=== PATIENT | female | born 1950 | race Caucasian/White ===

== ENCOUNTER → 2016-12-23 | Outpatient (CLI) | payer MEDICARE, OTHER | END | disposition home or self-care (01) | LOC: LAB.O 08:19 | PROVIDERS: ATTEND Physician Assistant | DX: I77.9 Disorder of arteries and arterioles, unspecified (principal); R60.9 Edema, unspecified ==

== ENCOUNTER 2018-01-13 21:09 | Emergency (ER) | payer MEDICARE, OTHER ==
[2018-01-13] MEDS ORDERED: cloNIDine HCL 0.1 MG TAB PO ONE ×2 (21:32→22:30)
--- NOTE | 2018-01-13 21:35 | ED.PDOC ---
History of Present Illness - General Chief Complaint: Blood Pressure Problem Stated Complaint: elevated blood pressure Time Seen by Provider: 01/13/18 21:32 Source: patient Exam Limitations: no limitations - History of Present Illness Initial Comments: patient comes in today with several hour history of elevation of blood pressure greater than 200 systolic and greater than 100 diastolic. Patient her blood pressure has been very well controlled in the 120 systolic for greater than a year. Patient last saw her doctor a week ago but was started on medication for nerve pain. Patient states she is highly sensitive to medicine and is worried that may be causative. Patient has noticed this week for the first time with severe headache today. She does not normally suffer problems with this. Tonight she has headache that severe, bilateral, throbbing, superior without radiation. She has no chest pain but some nausea here and she denies vision change, shortness of breath, or difficulties with urination. Timing/Duration: 1-3 hours Severity: severe Improving Factors: rest Worsening Factors: nothing Associated Symptoms: nausea/vomiting Allergies/Adverse Reactions: Allergies Codeine Allergy (Verified 04/29/16 11:11) Lidocaine Allergy (Verified 04/29/16 11:11) Sulfa Drugs Allergy (Verified 10/17/13 06:47) Home Medications: Ambulatory Orders Amlodipine Besylate 10 mg PO DAILY 10/16/13 Metoprolol Tartrate 100 mg PO BID 10/16/13 Olmesartan Medoxomil-Hydrochlo [Benicar Hct 40-12.5 mg] 1 tab PO DAILY 10/16/13 Omeprazole 40 mg PO DAILY 10/16/13 Temazepam 30 mg PO HS 10/16/13 Aspirin [Aspirin Adult Low Dose] 81 mg PO DAILY 04/29/16 Celecoxib [CeleBREX] 200 mg PO BID 04/29/16 Coenzyme Q10 (Ubidecarenone) [Co Q-10] 100 mg PO DAILY 04/29/16 Furosemide 10 mg PO DAILY 04/29/16 Garlic [Odorless Garlic] 1,000 mg PO DAILY 04/29/16 Krill Oil [Krill Oil 1000 mg] 1 cap PO DAILY 04/29/16 Rosuvastatin Calcium [Crestor] 5 mg PO WKLY 04/29/16 Review of Systems - Review of Systems Constitutional: States: chills, diaphoresis, fever EENTM: States: no symptoms reported. Denies: blurred vision Respiratory: States: no symptoms reported. Denies: orthopnea, short of breath, wheezing Cardiology: Denies: chest pain, palpitations Gastrointestinal/Abdominal: States: nausea. Denies: abdominal pain, constipation, diarrhea, vomiting Genitourinary: States: no symptoms reported Neurological: States: headache. Denies: numbness, paresthesia, weakness Past Medical History (General) - Patient Medical History Hx Cardiac Disorders: No Hx Congestive Heart Failure: No Hx Diabetes: No Hx MRSA: No Family Medical History - Family History Mother Family History: Unknown Physical Exam - Physical Exam General Appearance: Alert, No apparent distress Eye Exam: bilateral normal Ears, Nose, Throat: hearing grossly normal, normal ENT inspection, normal pharynx Neck: non-tender, full range of motion, supple, normal inspection Respiratory: chest non-tender, lungs clear, normal breath sounds, no respiratory distress Cardiovascular/Chest: normal peripheral pulses, regular rate, rhythm, no edema, no gallop, no JVD, no murmur Peripheral Pulses: radial,right: 2+, radial,left: 2+, posterior tibialis,right: 2+, posterior tibialis,left: 2+ Gastrointestinal/Abdominal: normal bowel sounds, non tender, soft, no organomegaly, no pulsatile mass Extremity: normal range of motion, non-tender Neurologic: laboratory helper II-XII nml as tested, no motor/sensory deficits, alert, normal mood/affect DTR: 2+: Biceps, left, Biceps, right, Patellar, left, Patellar, right Skin Exam: normal color Progress - Progress Progress: 01/13/18 22:20 01/13/18 21:45 EKG STAT Laboratory Results WBC 5.5 K/mm3 (4.8-10.8) 01/13/18 21:32 RBC 3.83 M/mm3 (4.20-5.40) L 01/13/18 21:32 Hgb 12.6 gm/dL (12.0-16.0) 01/13/18 21:32 Hct 36.2 % (36.0-47.0) 01/13/18 21:32 MCV 94.6 fl (81.0-99.0) 01/13/18 21:32 MCH 32.8 pg (27.0-31.0) H 01/13/18 21:32 MCHC 34.9 g/dL (33.0-37.0) 01/13/18 21:32 RDW 13.5 % (11.5-14.5) 01/13/18 21:32 Plt Count 175 K/mm3 (130-400) 01/13/18 21:32 MPV 7.2 fl (7.40-10.4) L 01/13/18 21:32 Absolute Neuts (auto) 3.30 K/uL (1.8-6.8) 01/13/18 21:32 Absolute Lymphs (auto) 1.30 K/uL (1.0-3.4) 01/13/18 21:32 Absolute Monos (auto) 0.50 K/uL (0.2-0.8) 01/13/18 21:32 Absolute Eos (auto) 0.30 K/uL (0.0-0.4) 01/13/18 21:32 Absolute Basos (auto) 0.00 K/uL (0.0-0.1) 01/13/18 21:32 Neutrophils % 60.3 % (42.0-78.0) 01/13/18 21:32 Lymphocytes % 24.4 % (20.0-50.0) 01/13/18 21:32 Monocytes % 9.3 % (2.0-9.0) H 01/13/18 21:32 Eosinophils % 5.7 % (1.0-5.0) H 01/13/18 21:32 Basophils % 0.3 % (0.0-2.0) 01/13/18 21:32 Sodium 139 mmol/L (135-145) 01/13/18 21:32 Potassium 3.3 mmol/L (3.6-5.0) L 01/13/18 21:32 Chloride 103 mmol/L (101-111) 01/13/18 21:32 Carbon Dioxide 24 mmol/L (21-31) 01/13/18 21:32 Anion Gap 15.3 (12-18) 01/13/18 21:32 BUN 21 mg/dL (7-18) H 01/13/18 21:32 Creatinine 1.10 mg/dL (0.6-1.3) 01/13/18 21:32 BUN/Creatinine Ratio 19.1 (10-20) 01/13/18 21:32 Random Glucose 121 mg/dL (70-105) H 01/13/18 21:32 Serum Osmolality 281.8 mOsm/L (275-295) 01/13/18 21:32 Calcium 9.4 mg/dL (8.4-10.2) 01/13/18 21:32 Total Bilirubin 0.5 mg/dL (0.2-1.0) 01/13/18 21:32 AST 31 IU/L (10-42) 01/13/18 21:32 ALT 24 IU/L (10-60) 01/13/18 21:32 Alkaline Phosphatase 65 IU/L (42-121) 01/13/18 21:32 Troponin I < 0.02 ng/mL (0.01-0.05) 01/13/18 21:32 Serum Total Protein 6.9 gm/dL (6.4-8.2) 01/13/18 21:32 Albumin 3.7 g/dl (3.2-5.5) 01/13/18 21:32 Globulin 3.2 gm/dL (2.3-3.5) 01/13/18 21:32 Albumin/Globulin Ratio 1.2 (1.1-1.9) 01/13/18 21:32 01/13/18 23:08 patient is doing better and BP is 169/89. will have her take her Norvasc in the am and go home and try to rest tonight. follow up with PCP on Tuesday. Return to ER for return of SOTO, chest pain, shortness of breath, or BP >180/100. Stop new medication for leg pain at night as BP began increasing with this medication. - EKG/XRAY/CT EKG: Sinus, no ST T wave changes Comments: HR 68 with normal axis and 1st degree AV block Departure - Departure Clinical Impression: Hypertensive urgency Disposition: Discharge to Home or Self Care Condition: Good Departure Forms: ED Discharge - Pt. Copy, Patient Portal Self Enrollment Instructions: DI for High Blood Pressure Diet: low salt diet Referrals: Jean Lindsay MD [Primary Care Provider] - 1-2 Weeks Home Medications: Ambulatory Orders Amlodipine Besylate 10 mg PO DAILY 10/16/13 Metoprolol Tartrate 100 mg PO BID 10/16/13 Olmesartan Medoxomil-Hydrochlo [Benicar Hct 40-12.5 mg] 1 tab PO DAILY 10/16/13 Omeprazole 40 mg PO DAILY 10/16/13 Temazepam 30 mg PO HS 10/16/13 Aspirin [Aspirin Adult Low Dose] 81 mg PO DAILY 04/29/16 Celecoxib [CeleBREX] 200 mg PO BID 04/29/16 Coenzyme Q10 (Ubidecarenone) [Co Q-10] 100 mg PO DAILY 04/29/16 Furosemide 10 mg PO DAILY 04/29/16 Garlic [Odorless Garlic] 1,000 mg PO DAILY 04/29/16 Krill Oil [Krill Oil 1000 mg] 1 cap PO DAILY 04/29/16 Rosuvastatin Calcium [Crestor] 5 mg PO WKLY 04/29/16 Additional Instructions: follow up with PCP on Tuesday. Return to ER for return of SOTO, chest pain, shortness of breath, or BP >180/100. Stop new medication for leg pain at night as BP began increasing with this medication.
[2018-01-13 22:42] VITALS: TEMP 99.4; O2SAT 98
[2018-01-14 00:21] VITALS: BP 160/90
== END 2018-01-13 23:31 | disposition home or self-care (01) ==
LOC: ER 21:09
DX: I16.0 Hypertensive urgency (principal); R11.2 Nausea with vomiting, unspecified; I44.0 Atrioventricular block, first degree; Z79.899 Other long term (current) drug therapy; Z88.2 Allergy status to sulfonamides; Z88.5 Allergy status to narcotic agent

== ENCOUNTER 2018-01-19 01:48 | Emergency (ER) | payer MEDICARE, OTHER ==
[2018-01-19 02:31] VITALS: O2SAT 96
--- NOTE | 2018-01-19 02:42 | ED.PDOC ---
History of Present Illness - General Chief Complaint: Blood Pressure Problem Stated Complaint: elevated BP Time Seen by Provider: 01/19/18 02:39 Source: patient, Vital Signs reviewed Exam Limitations: no limitations Additional Information: 67 YEAR OLD PRESENTS WITH UNCONTROLLED BLOOD PRESSURE BUT HAS NO SYMPTOMS HAS NO HEADACHE NO FOCAL WEAKNESS NO CHEST PAIN OR SHORTNESS OF BREATH - History of Present Illness Timing/Duration: 4-6 hours Severity: mild Improving Factors: nothing Worsening Factors: nothing Associated Symptoms: denies symptoms Allergies/Adverse Reactions: Allergies Codeine Allergy (Verified 04/29/16 11:11) Lidocaine Allergy (Verified 04/29/16 11:11) Sulfa Drugs Allergy (Verified 10/17/13 06:47) Home Medications: Ambulatory Orders Amlodipine Besylate 10 mg PO DAILY 10/16/13 Metoprolol Tartrate 100 mg PO BID 10/16/13 Olmesartan Medoxomil-Hydrochlo [Benicar Hct 40-12.5 mg] 1 tab PO DAILY 10/16/13 Omeprazole 40 mg PO DAILY 10/16/13 Temazepam 30 mg PO HS 10/16/13 Aspirin [Aspirin Adult Low Dose] 81 mg PO DAILY 04/29/16 Celecoxib [CeleBREX] 200 mg PO BID 04/29/16 Coenzyme Q10 (Ubidecarenone) [Co Q-10] 100 mg PO DAILY 04/29/16 Furosemide 10 mg PO DAILY 04/29/16 Garlic [Odorless Garlic] 1,000 mg PO DAILY 04/29/16 Krill Oil [Krill Oil 1000 mg] 1 cap PO DAILY 04/29/16 Rosuvastatin Calcium [Crestor] 5 mg PO WKLY 04/29/16 Clonidine HCl 0.2 mg PO BID #60 tab 01/19/18 Review of Systems - Review of Systems Constitutional: States: no symptoms reported EENTM: States: no symptoms reported Respiratory: States: no symptoms reported Cardiology: States: no symptoms reported Gastrointestinal/Abdominal: States: no symptoms reported Genitourinary: States: no symptoms reported Musculoskeletal: States: no symptoms reported Skin: States: no symptoms reported Neurological: States: no symptoms reported Endocrine: States: no symptoms reported Hematologic/Lymphatic: States: no symptoms reported Past Medical History (General) - Patient Medical History Hx Cardiac Disorders: No Hx Congestive Heart Failure: No Hx Hypertension: Yes Hx Diabetes: No Hx MRSA: No Surgical History: cholecystectomy, other - Vaccination History Hx Tetanus, Diphtheria Vaccination: No Hx Influenza Vaccination: Yes Hx Pneumococcal Vaccination: Yes - Social History Hx Tobacco Use: No Hx Alcohol Use: No Family Medical History - Family History Mother Family History: Unknown Physical Exam - Physical Exam General Appearance: Alert, Comfortable Eye Exam: bilateral normal Ears, Nose, Throat: hearing grossly normal, normal ENT inspection, normal pharynx Neck: non-tender, full range of motion, supple Respiratory: chest non-tender, lungs clear, normal breath sounds, no respiratory distress Cardiovascular/Chest: normal peripheral pulses, regular rate, rhythm, no edema, no gallop, no JVD Peripheral Pulses: radial,right: 2+ Gastrointestinal/Abdominal: normal bowel sounds, non tender, soft, no organomegaly Back Exam: normal inspection, no CVA tenderness, no vertebral tenderness Extremity: normal range of motion, non-tender Neurologic: procurement professional logistics II-XII nml as tested, no motor/sensory deficits, alert, normal mood/affect Departure - Departure Clinical Impression: Hypertension Time of Disposition: 02:43 Disposition: Discharge to Home or Self Care Condition: Good Departure Forms: ED Discharge - Pt. Copy, Patient Portal Self Enrollment Instructions: DI for High Blood Pressure Referrals: Jean Lindsay MD [Primary Care Provider] - 1-2 Weeks Prescriptions: Clonidine HCl 0.2 mg PO BID #60 tab Home Medications: Ambulatory Orders Amlodipine Besylate 10 mg PO DAILY 10/16/13 Metoprolol Tartrate 100 mg PO BID 10/16/13 Olmesartan Medoxomil-Hydrochlo [Benicar Hct 40-12.5 mg] 1 tab PO DAILY 10/16/13 Omeprazole 40 mg PO DAILY 10/16/13 Temazepam 30 mg PO HS 10/16/13 Aspirin [Aspirin Adult Low Dose] 81 mg PO DAILY 04/29/16 Celecoxib [CeleBREX] 200 mg PO BID 04/29/16 Coenzyme Q10 (Ubidecarenone) [Co Q-10] 100 mg PO DAILY 04/29/16 Furosemide 10 mg PO DAILY 04/29/16 Garlic [Odorless Garlic] 1,000 mg PO DAILY 04/29/16 Krill Oil [Krill Oil 1000 mg] 1 cap PO DAILY 04/29/16 Rosuvastatin Calcium [Crestor] 5 mg PO WKLY 04/29/16 Clonidine HCl 0.2 mg PO BID #60 tab 07/26/18
[2018-01-19 03:06] VITALS: BP 126/76; TEMP 98.2
== END 2018-01-19 03:05 | disposition home or self-care (01) ==
LOC: ER 01:48
DX: I10 Essential (primary) hypertension (principal); Z79.899 Other long term (current) drug therapy; Z79.82 Long term (current) use of aspirin

== ENCOUNTER 2018-01-26 08:43 | Emergency (ER) | payer MEDICARE, OTHER ==
[2018-01-26 09:00] VITALS: TEMP 98.4
--- NOTE | 2018-01-26 09:33 | ED.PDOC ---
History of Present Illness - General Chief Complaint: Blood Pressure Problem Stated Complaint: elevated BP,shaky,weak Time Seen by Provider: 01/26/18 08:45 Source: patient, family Exam Limitations: no limitations - History of Present Illness Initial Comments: patient comes in today for elevated blood pressure and weakness. Patient has had a difficult time for the last 2-3 weeks with elevated blood pressure. After having blood pressure well controlled for several years patient was started on Neurontin for another issue. At that time her blood pressure started elevating to greater than 200 and she arrived to the emergency room on 13 of January. Patient at that time was given clonidine and her blood pressure was decreased. She followed up with her PCP and subsequently her housekeeping associate. Her blood pressure medication has since been adjusted but she continues to have bouts of elevation of blood pressure. The last adjustment was a week ago when she was changed to Benicar and labetalol in addition to her Norvasc. She felt very well until yesterday when she started having blood pressure spikes in the 190s systolic and over 100 diastolic. Additionally, last night she's been had a feeling of weakness and shaking. She's felt that way several times before when she was given lidocaine for anesthesia. Patient states that is the only other time this reaction has occurred. Patient is stuttering her words at times, feeling extremely weak in her legs, and having her hands and feet feel shaky. Patient has been dealing with chronic diarrhea for months with multiple loose stools. She's had gastroenterology work that up without definitive diagnosis at this time she is not undergoing treatment. Patient denies any fever, chills, cough or cold symptoms. She has no chest pain or shortness of breath currently but did have a bout of chest pain last night that was sharp and located under the left breast and radiated to her back. Patient did note that her heart rate had been in the 60s on the beta susan but fanny to 103 last night when she was feeling ill. Timing/Duration: 24 hours Severity: severe Improving Factors: nothing Worsening Factors: nothing Associated Symptoms: fever/chills, weakness Allergies/Adverse Reactions: Allergies Codeine Allergy (Verified 04/29/16 11:11) Gabapentin Allergy (Verified 01/26/18 09:00) Lidocaine Allergy (Verified 04/29/16 11:11) Sulfa Drugs Allergy (Verified 10/17/13 06:47) Home Medications: Ambulatory Orders Amlodipine Besylate 10 mg PO DAILY 10/16/13 Omeprazole 40 mg PO DAILY 10/16/13 Temazepam 30 mg PO HS 10/16/13 Aspirin [Aspirin Adult Low Dose] 81 mg PO DAILY 04/29/16 Celecoxib [CeleBREX] 200 mg PO BID 04/29/16 Furosemide 20 mg PO DAILY 04/29/16 Coenzyme Q10 (Ubidecarenone) [Coenzyme Q10] 100 mg PO DAILY 01/26/18 Garlic 1,000 mg PO DAILY 01/26/18 Krill Oil [Krill Oil 1000 mg] 1 cap PO DAILY 01/26/18 Labetalol HCl 100 mg PO BID 01/26/18 Olmesartan Medoxomil [Benicar] 20 mg PO BID 01/26/18 Review of Systems - Review of Systems Constitutional: States: chills, weakness, other EENTM: States: no symptoms reported. Denies: eye pain, blurred vision, ear pain , nose pain, throat pain Respiratory: States: no symptoms reported. Denies: cough, short of breath, wheezing Cardiology: States: see HPI. Denies: chest pain, edema, palpitations, syncope Gastrointestinal/Abdominal: States: diarrhea. Denies: abdominal pain, constipation, nausea, vomiting Genitourinary: States: no symptoms reported Musculoskeletal: States: no symptoms reported Skin: States: no symptoms reported Neurological: States: see HPI Past Medical History (General) - Patient Medical History Hx Stroke: No Hx Cardiac Disorders: No Hx Congestive Heart Failure: No Hx Hypertension: Yes Hx Diabetes: No Hx MRSA: No Surgical History: cholecystectomy - Vaccination History Hx Tetanus, Diphtheria Vaccination: No Hx Influenza Vaccination: Yes Hx Pneumococcal Vaccination: Yes - Social History Hx Tobacco Use: No Hx Alcohol Use: No Family Medical History - Family History Mother Family History: Unknown Progress - Progress Progress: 01/26/18 10:19 01/26/18 09:30 EKG STAT 01/26/18 10:18 Head [CT] Stat Laboratory Results WBC 3.9 K/mm3 (4.8-10.8) L 01/26/18 09:27 RBC 3.96 M/mm3 (4.20-5.40) L 01/26/18 09:27 Hgb 13.1 gm/dL (12.0-16.0) 01/26/18 09:27 Hct 38.5 % (36.0-47.0) 01/26/18: MCV 97.3 fl (81.0-99.0) 01/26/18: MCH 33.0 pg (27.0-31.0) H 01/26/18: MCHC 34.0 g/dL (33.0-37.0) 01/26/18: RDW 13.5 % (11.5-14.5) 01/26/18: Plt Count 182 K/mm3 (130-400) 01/26/18: MPV 7.5 fl (7.40-10.4) 01/26/18: Absolute Neuts (auto) 2.40 K/uL (1.8-6.8) 01/26/18: Absolute Lymphs (auto) 0.90 K/uL (1.0-3.4) L 01/26/18: Absolute Monos (auto) 0.40 K/uL (0.2-0.8) 01/26/18: Absolute Eos (auto) 0.20 K/uL (0.0-0.4) 01/26/18: Absolute Basos (auto) 0.00 K/uL (0.0-0.1) 01/26/18: Neutrophils % 61.3 % (42.0-78.0) 01/26/18: Lymphocytes % 23.4 % (20.0-50.0) 01/26/18: Monocytes % 9.0 % (2.0-9.0) 01/26/18: Eosinophils % 5.9 % (1.0-5.0) H 01/26/18: Basophils % 0.4 % (0.0-2.0) 01/26/18: Sodium 143 mmol/L (135-145) 01/26/18: Potassium 4.1 mmol/L (3.6-5.0) 01/26/18: Chloride 105 mmol/L (101-111) 01/26/18: Carbon Dioxide 27 mmol/L (21-31) 01/26/18: Anion Gap 15.1 (12-18) 01/26/18 09: BUN 20 mg/dL (7-18) H 01/26/18: Creatinine 1.29 mg/dL (0.6-1.3) 01/26/18 09: BUN/Creatinine Ratio 15.5 (10-20) 01/26/18 09: Random Glucose 118 mg/dL (70-105) H 01/26/18: Serum Osmolality 288.7 mOsm/L (275-295) 01/26/18: Calcium 9.8 mg/dL (8.4-10.2) 01/26/18: Total Bilirubin 0.7 mg/dL (0.2-1.0) 01/26/18: AST 37 IU/L (10-42) 01/26/18 ALT 31 IU/L (10-60) 01/26/18: Alkaline Phosphatase 68 IU/L (42-121) 01/26/18 Creatine Kinase 94 IU/L (26-140) 01/26/18: CK-MB (CK-2) 2.2 ng/mL (0.0-4.4) 01/26/18 CK-MB (CK-2) % Not Reportable 01/26/18 Troponin I < 0.02 ng/mL (0.01-0.05) 01/26/18: Serum Total Protein 7.5 gm/dL (6.4-8.2) 01/26/18: Albumin 4.1 g/dl (3.2-5.5) 01/26/18 Globulin 3.4 gm/dL (2.3-3.5) 01/26/18 Albumin/Globulin Ratio 1.2 (1.1-1.9) 01/26/18 Urine Color Yellow (Yellow) 01/26/18 Urine Appearance Clear (Clear) 01/26/18 Urine pH 6.0 (4.5-7.8) 01/26/18: Ur Specific [place] 1.015 (1.005-1.030) 01/26/18 Urine Protein Negative mg/dL 08/02/18 09:23 Urine Glucose (UA) Negative mg/dL (Negative) 01/26/18 09:23 Urine Ketones Negative mg/dL (NEGATIVE) 01/26/18 09:23 Urine Blood Trace-intact (Negative) H 01/26/18 09:23 Urine Nitrite Negative 01/26/18 09:23 Urine Bilirubin Negative (NEGATIVE) 01/26/18 09:23 Urine Urobilinogen 0.2 mg/dL (0.2-1.0) 01/26/18 09:23 Ur Leukocyte Esterase Negative (Negative) 01/26/18 09:23 Urine RBC 0 /hpf 01/26/18 09:23 Urine WBC 0 /hpf 01/26/18:23 Ur Epithelial Cells 3-5 /hpf 01/26/18:23 Urine Bacteria 0 01/26/18 09:23 after talking the patient further patient admits she has been having some other symptoms for approximately a year. Other she normally just dismisses them occasionally she has vision problems with her right eye where she feels like she is looking through a screen. She also notices that sometimes she sees things out of the corner of her eye there are moving rapidly that aren't really there. She has been seen by director of bands but they thought that those were just floaters. Patient states she feels a get something different. Also at nighttime as well she'll feel her legs start jerking on their own and one muscle may isolate and starts to rapidly contract. Patient has had for approximately a year ongoing paresthesias of the right thigh and fourth and fifth toes on the right side. Additionally although these episodes are more severe in the last 2 weeks she has had occasional episodes of shaking of her hands. Her dad did have Parkinson's disease and she did not know if perhaps that could be what might be going on. We've ordered a CT of the head at this time although other exam is reassuring and patient is improving. Although she still feels little bit weaker tremors, stuttering, and chills have subsided. 01/26/18 10:47 Patient Name: SHANELLE ENGILSH Gender: Female Date of : 1950 cell Referring Physician: SARATH LEVY Organization: [facility] Accession Number: [id number] Requested Date: January 26, 2018 10:18 Report Status: Final Requested Procedure: 1 Procedure Description: Head Modality: CT Findings Reporting MD: Sameer Muñoz Fellow MD: Not available Dictation Time: Group Exercise Class Instructor: Not available Ferry Hand Date: EXAM DESCRIPTION: Head CLINICAL HISTORY: altered LOC/paresthesias/vision change COMPARISON: None available TECHNIQUE: Noncontrast head CT was performed with routine protocol. FINDINGS: Normal engel-white matter differentiation. Ventricles and sulci are normal for age. No high density hemorrhage, focal edema or shift of the midline. No sulcal effacement. Normal orbital contents. Basilar cisterns appear clear. Intact calvarium with no fracture or lytic lesion. Normal aeration of tympanic cavities and mastoid air cells. No fluid levels in the paranasal sinuses. Skull base appears intact. Symmetrical internal auditory canals. IMPRESSION: No acute intracranial pathologic process - EKG/XRAY/CT EKG: Atrial, Sinus, no ST T wave changes, Unchanged from - 01/13/18 Comments: NSR with PVC and HR of 90 Departure - Departure Clinical Impression: Uncontrolled hypertension Disposition: Discharge to Home or Self Care Condition: Fair Departure Forms: ED Discharge - Pt. Copy, Patient Portal Self Enrollment Instructions: DI for High Blood Pressure Activity: walking as tolerated Referrals: Jean Lindsay MD [Primary Care Provider] - 1-2 Weeks Home Medications: Ambulatory Orders Amlodipine Besylate 10 mg PO DAILY 10/16/13 Omeprazole 40 mg PO DAILY 10/16/13 Temazepam 30 mg PO HS 10/16/13 Aspirin [Aspirin Adult Low Dose] 81 mg PO DAILY 04/29/16 Celecoxib [CeleBREX] 200 mg PO BID 04/29/16 Furosemide 20 mg PO DAILY 04/29/16 Coenzyme Q10 (Ubidecarenone) [Coenzyme Q10] 100 mg PO DAILY 01/26/18 Garlic 1,000 mg PO DAILY 01/26/18 Krill Oil [Krill Oil 1000 mg] 1 cap PO DAILY 01/26/18 Labetalol HCl 100 mg PO BID 01/26/18 Olmesartan Medoxomil [Benicar] 20 mg PO BID 01/26/18 Additional Instructions: Continue current BP medication. Return to ER for chest pain, altered LOC, severe weakness. Follow up with Neurology as discussed for further work up.
[2018-01-26 10:25] VITALS: O2SAT 97
--- NOTE | 2018-01-26 10:43 | CT ---
EXAM DESCRIPTION: Head CLINICAL HISTORY: altered LOC/paresthesias/vision change COMPARISON: None available TECHNIQUE: Noncontrast head CT was performed with routine protocol. FINDINGS: Normal engel-white matter differentiation. Ventricles and sulci are normal for age. No high density hemorrhage, focal edema or shift of the midline. No sulcal effacement. Normal orbital contents. Basilar cisterns appear clear. Intact calvarium with no fracture or lytic lesion. Normal aeration of tympanic cavities and mastoid air cells. No fluid levels in the paranasal sinuses. Skull base appears intact. Symmetrical internal auditory canals. IMPRESSION: No acute intracranial pathologic process. This exam was performed according to our departmental dose-optimization program, which includes automated exposure control, adjustment of the mA and/or kV according to patient size and/or use of iterative reconstruction technique. Total DLP equals 752.48 mGycm. Electronically signed by: Sameer Muñoz MD 01/26/2018 10:42 AM CDT
[2018-01-26 10:59] VITALS: BP 151/89
== END 2018-01-26 11:01 | disposition home or self-care (01) ==
LOC: ER 08:43
DX: I10 Essential (primary) hypertension (principal); R53.1 Weakness; I49.3 Ventricular premature depolarization; Z79.82 Long term (current) use of aspirin; Z79.899 Other long term (current) drug therapy; Z88.5 Allergy status to narcotic agent; Z88.2 Allergy status to sulfonamides; Z88.8 Allergy status to other drugs, medicaments and biological substances

== ENCOUNTER → 2018-01-31 | Outpatient (CLI) | payer MEDICARE, OTHER | LOC: GMAJ 10:24 | PROVIDERS: ATTEND Family Medicine | DX: R06.02 Shortness of breath (principal) ==

== ENCOUNTER → 2018-12-12 | Outpatient (CLI) | payer MEDICARE, OTHER ==
--- NOTE | 2018-12-13 11:41 | MRI ---
EXAM DESCRIPTION: Lumbar Spine w/o Contrast CLINICAL HISTORY: SPINAL STENOSIS LUMBAR REGION COMPARISON: None Available. TECHNIQUE: MRI of the lumbar spine is performed according to our usual protocol with axial and sagittal multi sequence imaging. FINDINGS: Sagittal T2 images reveal decreased signal intensity consistent with desiccation of the intervertebral discs at all lumbar levels. Previous fusion at L5-S1 with L5 on S1 anterolisthesis 1.9 cm. There is degenerative anterolisthesis of L4 on L5 measuring 5 mm. Marked disc degeneration with surrounding Modic type II changes at L4-5. Severe narrowing of the spinal canal behind L4. Loss of vertebral body height posteriorly at L5. Posterior annular bulge is most prominent at L4-5. No prevertebral mass or aneurysm. Lower cord and conus appear normal. Tip of the conus is behind L1-L2. Sagittal T1 images reveal benign marrow signal characteristics. Prominent Schmorl's node in upper L1. Normal T1 signal intensity and appearance of the lower cord and conus. Sagittal STIR images are negative for marrow edema within the vertebral bodies or posterior elements. No paraspinous fluid collection or cystic lesion. Axial T1 and T2-weighted images were obtained to evaluate the disc levels. T12-L1: No posterior annular bulge or herniation. No spinal stenosis or neural foraminal narrowing. Mild facet hypertrophy. Normal appearance of the lower cord and conus. L1-2: Minimal posterior annular bulge without spinal stenosis or neural foraminal narrowing. Facets appear normal. L2-3: Minimal posterior annular bulge without focal herniation. No spinal stenosis or neural foraminal narrowing. Moderate facet hypertrophy bilaterally. L3-4: Mild diffuse posterior annular bulge with far left lateral accentuation and small superimposed midline protrusion extending inferiorly behind upper endplate of L4. This measures 2.5 mm in AP dimension and approximately 6 mm in mediolateral width. Moderate facet hypertrophy bilaterally with ligamentum flavum thickening and increased fluid in the facet joints. No lateral recess compromise or significant neural foraminal narrowing. L4-5: Anterolisthesis of L4 on L5 causes uncovering of the posterior annulus. Diffuse annular bulge is present and there is severe spinal stenosis with the canal measuring approximately 7 mm in AP dimension and 5 mm mediolateral width (axial images six through eight, series 501). There is marked facet hypertrophic spurring and ligamentum flavum thickening contributing to central canal stenosis. Thecal sac is compressed and the nerve roots are crowded. There is severe bilateral narrowing of subarticular and lateral recesses compressing descending L5 nerve roots. Sagittal images show bilateral neural foraminal narrowing of moderate severity. Posterior to mid L5 vertebral body, severe spinal stenosis is seen with AP diameter of the spinal canal narrowed to 5 mm. Complete block at this level with flattened thecal sac and compression of the nerve roots. L5-S1: Grade 3 anterolisthesis at this fused disc level uncovers the posterior annulus. High-grade spinal stenosis with complete obliteration of the spinal canal at the level of upper L5-S1 disc. Severe facet hypertrophic changes bilaterally contribute to central canal stenosis. There is severe narrowing of subarticular recesses compressing descending S1 nerve roots. Sagittal images show severe bilateral neural foraminal narrowing compressing the exiting L5 nerve roots. Upper sacrum appears intact. No retroperitoneal mass or aneurysm. Very large right renal cyst. IMPRESSION: Fused L4-5 disc level with grade 3 anterolisthesis and severe spinal stenosis. Grade 1 anterolisthesis of L4 on L5 with severe spinal stenosis. Bilateral L4-5 and L5-S1 neural foraminal narrowing and lateral recess compromise as described. Electronically signed by: Sameer Muñoz MD 12/13/2018 11:38 AM CDT
== END ==
LOC: MRI 10:00
PROVIDERS: ATTEND Family Medicine
DX: M48.062 Spinal stenosis, lumbar region with neurogenic claudication (principal); M43.16 Spondylolisthesis, lumbar region; Z98.1 Arthrodesis status

== ENCOUNTER → 2019-01-17 | Outpatient (CLI) | payer MEDICARE, OTHER ==
--- NOTE | 2019-01-17 12:45 | MRI ---
EXAM DESCRIPTION: Cervical Spine: MRI. CLINICAL HISTORY: 68 years Female SPINAL STENOSIS COMPARISON: None. TECHNIQUE: Multiplanar, high-field MRI, multiple sequences, non-contrast Cervical spine. FINDINGS: C3-C4: Disc desiccation and minimal disc space loss. 2 mm grade 1 anterolisthesis. Posterior midline disc bulge not abutting the cord. Left facet hypertrophic arthrosis. Mild canal narrowing the bilateral frontal neural foramina are patent. C4-C5: Moderate disc space loss with disc desiccation. Anterior and posterior disc uncovered 3.5 mm grade 1-2 anterolisthesis. Bilateral uncinate spurs and minimal foraminal narrowing. Bilateral mild facet arthrosis. Mild canal narrowing. C5-C6: Moderate to severe disc space loss and disc desiccation. Anterior disc remnant bulge with anterior ridging. Posterior disc osteophyte complex bulge with grade 1 retrolisthesis 2 mm abutting the ventral cord. Mild to moderate canal narrowing. Bilateral mild neural foraminal narrowing and mild canal narrowing. C6-C7: Disc desiccation and moderate disc space loss. Trace retrolisthesis. Bilateral uncinate spurs. Canal is patent. Bilateral mild neural foraminal narrowing. Bilateral facets are negative. C7-T1: Mild to moderate disc space loss with disc desiccation. Grade 1-2 anterolisthesis 3.5 mm. Anterior and posterior discs margins uncovered. Moderate canal narrowing. Right neural foraminal mild narrowing and left neural foraminal moderate narrowing. T1-T2: Minimal disc desiccation minimal disc space loss. Trace anterolisthesis. Canal and neural foramina are patent. Mild arthrosis bilateral facets. Perineural cyst in the left neural foramen. Normal signal in the remaining discs with no bulging. Disc spaces preserved. Canal and neural foramina are patent. Facet joints negative. Spinal alignment kyphosis C4-C6. Spondylolisthesis at multiple levels.. No cord compression or cord edema. Atlantoaxial joint minimal effusion.. Base of the cerebellar tonsils is slightly above the foramen magnum. Paravertebral soft tissues show slightly enlarged thyroid gland on the right compared to the left lobe.. Vertebral bodies are not compressed at any level. Normal marrow signal in the remaining vertebral bodies and the posterior elements. IMPRESSION: 1. Multiple levels of disc degeneration spondylosis, disc space loss, spondylolisthesis, facet degeneration and hypertrophic periarticular bone. 2. Grade 1 anterolisthesis C3-4 two millimeters. Grade 1-2 anterolisthesis 3.5 mm at C4-C5 but no canal or neural foraminal stenosis. No nerve root compromise. 3. Grade 1 retrolisthesis 2 mm at C5-C6 abutting the ventral cord. Moderate canal narrowing and bilateral neural foraminal narrowing is mild. No nerve root compromise. 4. C7-T1 grade 1-2 anterolisthesis 3.5 mm. Moderate canal and left neural foraminal narrowing. Mild right neural foraminal narrowing. No nerve root compromise. Electronically signed by: Sarwat Moody MD 01/17/2019 12:43 PM CDT
== END ==
LOC: MRI 09:04
PROVIDERS: ATTEND Neurological Surgery
DX: M48.02 Spinal stenosis, cervical region (principal); M43.12 Spondylolisthesis, cervical region; M47.892 Other spondylosis, cervical region

== ENCOUNTER → 2019-01-18 | Outpatient (CLI) | payer MEDICARE, OTHER ==
--- NOTE | 2019-01-19 10:33 | CT ---
EXAM DESCRIPTION: Lumbar Spine w/Contrast: Computed Tomography. CLINICAL HISTORY: 68 years Female LUMBAR RADICULOPATHY COMPARISON: MRI scan of the lumbar spine 12/12/2018. TECHNIQUE: Spiral, axial 2.5 x 2.5 mm scans through the lumbarspine with Optiray 320 IV contrast. Images obtained 60 seconds after contrast injection. Coronal and sagittal 2.0 mm Reconstructions. No adverse reactions. Total Exam DLP: 613.68 mGy-cm. This exam was performed according to our departmental dose-optimization program which includes automated exposure control, adjustment of the mA and/or kV according to patient size and/or use of iterative reconstruction technique; to reduce radiation dose to as low as reasonably achievable (ALARA). FINDINGS: Overall bone density is decreased. L5-S1 vertebral bodies are fused with disc space not utilized. The L5 vertebra is angled anteriorly and positioned anteriorly to the S1 segment approximately 1 cm. L5-S1 facet joints are visualized with partial fusion on the right. Canal is patent at the level of the upper S1 endplate. Bilateral foramina are borderline stenotic. Extremely hypertrophic facet arthrosis bilaterally with large spurs projecting inferiorly into the spinal canal with 7 mm central canal stenosis at the level of the mid-upper L5 vertebral body. These facet spurs are also just medial to the bilateral L5-S1 foramina. No abnormal enhancement. L4-L5: Marked disc space loss with gas formation in the disc space. Grade 1 Anterolisthesis 4 mm. No posterior disc bulge. Endplate spurs with minimal to moderate bilateral foraminal narrowing more on the right. See above paragraph for discussion of facet joints. Moderate canal narrowing 12.5 mm. Hypertrophic right facet causing subarticular recess stenosis. No abnormal enhancement. L3-4: Posterior disc space loss with gas formation in the disc. Tiny posterior disc bulge. Bilateral facet joint widening with effusion, hypertrophy and thickened ligaments. AP canal diameter 11 mm. No abnormal enhancement. L2-L3: Disc space maintained. Bilateral hypertrophic facet arthrosis and ligament hypertrophy impressing on the thecal sac. No canal stenosis. Bilateral mild foraminal narrowing. No abnormal enhancement. L1-L2. Trace retrolisthesis. Posterior mild disc space loss. No significant disc bulging. Minimal hypertrophic facet arthrosis and flavum ligament thickening. Mild foraminal thickening more right than left. No abnormal enhancement. T12-L1: Decreased disc space. Old Schmorl's node and concavity anterior and left side of the superior L1 endplate. No significant disc bulging. Mild hypertrophic facet arthrosis and thickening of the ligaments. Canal and foramina are patent. No abnormal enhancement. No acute compression abnormalities. Defect in the superior L1 endplate is chronic. No scoliosis. Large cyst of abutting the right kidney also seen on prior MRI scan. IMPRESSION: 1. Prior compression of the L5 vertebral body into the anterior S1 sacral segment with complete fusion of the disc space. L5 vertebral bodies slightly flexed forward and is approximately 1 cm anterior to the S1 segment. No abnormal enhancement. Large inferior hypertrophic spurs from the L4-L5 facets are encroaching on the spinal canal at the level of the mid and superior L5 vertebral body with severe stenosis. Bilateral borderline L5-S1 foraminal stenosis. No abnormal enhancement. 2. Spondylosis and disc space loss, disc desiccation with gas formation, with anterolisthesis at L4-5. Bilateral foraminal narrowing. Hypertrophic right facet causing right subarticular recess stenosis. This could be causing compromise descending right L5 nerve root. No abnormal enhancement. 3. Posterior disc space loss and gas formation in the disc at L3-4. Moderate canal narrowing. Bilateral mild foraminal narrowing. No abnormal enhancement. 4. Old compression injury superior L1 endplate with no abnormal enhancement. Electronically signed by: Sarwat Moody MD 01/19/2019 10:32 AM CDT
== END ==
LOC: CT 09:30
PROVIDERS: ATTEND Neurological Surgery
DX: Q76.2 Congenital spondylolisthesis (principal); M54.16 Radiculopathy, lumbar region; M00-M99 Diseases of the musculoskeletal system and connective tissue; M51.34 Other intervertebral disc degeneration, thoracic region; N28.89 Other specified disorders of kidney and ureter; N28.1 Cyst of kidney, acquired

== ENCOUNTER → 2019-01-19 | Outpatient (CLI) | payer MEDICARE, OTHER ==
--- NOTE | 2019-01-19 14:59 | MRI ---
EXAM DESCRIPTION: Thoracic Spine w/o Contrast: Magnetic Resonance Imaging. CLINICAL HISTORY: SPINAL STENOSIS COMPARISON: MRI scan cervical spine 01/17/2019. CT scan and radiographs of the lumbar spine on this visit. TECHNIQUE: Multiplanar, multiple standard sequences, non contrast MRI, thoracic spine. FINDINGS: Disc desiccation at every level. Disc space matter narrowing at multiple levels. Disc bulging at T2-T3 which is abutting the cord. Also grade 1 anterolisthesis at this level. Grade 1 anterolisthesis at C7-T1. Trace anterolisthesis at T1-T2. No canal or foraminal stenosis at any level. No severe facet hypertrophic arthrosis at any level. Circumscribed hyperintense T1 and T2 lesion in the T8 vertebral body consistent with hemangioma. Large inactive Schmorl's node in the inferior T3 endplate anteriorly. Conus terminates T12-L1.. Cord with normal signal, no compression. Paravertebral soft tissues are unremarkable. 2.5 x 2.0 cm low-density mass in the upper pole of the left kidney posterior to the left adrenal gland. Intermediate signal on T1 sequences. Largest cyst right kidney. Otherwise normal marrow signal in the remaining vertebral bodies and the posterior elements. Vertebral bodies are not compressed at any level. IMPRESSION: Multiple levels of disc desiccation and disc space narrowing. No significant disc bulging or herniation. No canal or foraminal stenosis. No advanced facet arthrosis at any level. Normal marrow signal in the included bony elements. 2.5 cm mass upper pole left kidney may be solid. Large cyst right kidney. Recommend follow-up renal ultrasound. Electronically signed by: Sarwat Moody MD 01/19/2019 2:57 PM CDT
--- NOTE | 2019-01-19 15:14 | RAD ---
EXAM DESCRIPTION: Lumbosacral w/Oblique,Flex,Ext: CR/DR/XR CLINICAL HISTORY: 68 years Female SPONDYLOLISTHESIS COMPARISON: CT lumbar spine and MR thoracic spine on this visit. TECHNIQUE: 7 views AP Lateral Spot lateral L5-S1 Bilateral lateral obliques Lateral flexion-extension FINDINGS: Lumbar type vertebra: 5. Transitional vertebrae: None. Disc spaces: L5 with chronic compression and S1, chronic grade 2 anterolisthesis and loss of the disc space. Marked narrowing at L4-5 with gas formation in the disc. Spondylolisthesis and grade 1 anterior listhesis. Compression deformities: None. Bone Density: Decreased bone density. Alignment: No change in alignment L2-L5. Minimal flexion and extension above L2. No change in spondylolisthesis. Oblique: Possible bilateral pars spondylolysis at L4. Visualization of the pars is limited due to bone density. Please refer to CT scan. Facet joints: Multiple levels of arthrosis from L2-3 down to L4-5 bilaterally. Abdomen: Bowel gas pattern is nonspecific with mostly fecal material proximal colon. IMPRESSION: Chronic compression of L5 anteriorly on S1 with fixed grade 2 anterolisthesis and loss of the disc space. Flexion and extension is limited above L2. Possible spondylolysis bilateral L4. Multiple levels of facet arthrosis. Please refer to CT scan of the lumbar spine performed on this visit. Electronically signed by: Sarwat Moody MD 01/19/2019 3:13 PM CDT
== END ==
LOC: MRI 07:00
PROVIDERS: ATTEND Neurological Surgery
DX: M48.02 Spinal stenosis, cervical region (principal); M43.16 Spondylolisthesis, lumbar region; M54.16 Radiculopathy, lumbar region; M48.57XA Collapsed vertebra, not elsewhere classified, lumbosacral region, initial encounter for fracture; M51.34 Other intervertebral disc degeneration, thoracic region; N28.89 Other specified disorders of kidney and ureter; N28.1 Cyst of kidney, acquired

== ENCOUNTER → 2019-02-07 | Outpatient (CLI) | payer MEDICARE, OTHER ==
--- NOTE | 2019-02-07 09:42 | CT ---
EXAM DESCRIPTION: Abdoment/Pelvis w/o Contrast CLINICAL HISTORY: 68 years, Female, possible KIDNEY MASS. COMPARISON: Thoracic spine MRI 01/19/2019. TECHNIQUE: CT of the abdomen and pelvis is performed according to non contrast, renal stone protocol. FINDINGS: The lung bases are clear. The Liver, spleen, adrenals and pancreas are normal in contour. Several right and left hepatic hypodensities most consistent with hepatic cysts (measuring up to 2.3 cm (hepatic segment IV, approximately 3.5 Hounsfield units). The gallbladder is surgically absent. The right kidney is normal in contour without hydronephrosis or perinephric fluid collection. A large 9 cm low-attenuation right renal cyst is present. A 0.5 mm nonobstructing calyceal stones present within the superior pole. A 0.5 no obstructing calyceal stones present within the inferior pole. The left demonstrate no nephrolithiasis or perinephric fluid collection. An approximately 2.5 x 1.8 cm isodense exophytic mass is present arising from the superior pole of the left kidney (correlating with prior MRI lumbar spine incidental finding) measuring approximately 13 Hounsfield units, indeterminate. No focal bowel wall thickening or bowel obstruction. No free fluid within the pelvis. The reproductive organs are unremarkable. The bladder is normal in appearance. No lymphadenopathy. No acute osseous abnormality. Chronic posttraumatic remodeling at the lumbosacral junction. IMPRESSION: 1. Left superior renal pole 2 cm exophytic lesion is indeterminate. Renal neoplasm should be excluded. Further evaluation with contrast enhanced CT or MRI renal mass protocol is recommended. 2. Right 9 cm renal cyst. 3. Right nonobstructing nephrolithiasis. This exam was performed according to our departmental dose-optimization program, which includes automated exposure control, adjustment of the mA and/or kV according to patient size and/or use of iterative reconstruction technique. Electronically signed by: Migue García DO 02/07/2019 9:40 AM CDT
== END ==
LOC: CT 08:00
PROVIDERS: ATTEND Family Medicine
DX: N28.89 Other specified disorders of kidney and ureter (principal); N20.0 Calculus of kidney; N28.1 Cyst of kidney, acquired

== ENCOUNTER → 2019-02-08 | Outpatient (CLI) | payer MEDICARE, OTHER ==
--- NOTE | 2019-02-09 07:42 | US ---
EXAM DESCRIPTION: Renal CLINICAL HISTORY: 68 years Female, OTHER SPEC. DISORDERS OF KIDNEY AND URETEUR COMPARISON: CT abdomen and pelvis February 07, 2018 TECHNIQUE: Retroperitoneal sonogram was performed to evaluate the kidneys and bladder. FINDINGS: Right kidney Right renal length is 12.2 cm including a large cyst. Renal cortical thinning is present but parenchymal echogenicity is normal. Large right renal cyst is present which measures 8.1 cm in greatest dimension. This appears simple and was seen on previous CT. No hydronephrosis. Stones seen in the right kidney on CT are not identified on sonography. Left kidney Left renal length is 10 cm cm. Diffuse renal cortical thinning with normal echogenicity. The lesion at the upper pole left kidney sonographically solid and measures 2.8 x 2.1 x 1.8 cm. Primary renal cell carcinoma is the most likely diagnoses considering CT and sono findings. Urologic surgical consultation is recommended. No left renal cyst or shadowing stone. No hydronephrosis. Urinary bladder No images of the urinary bladder are submitted. Previous CT showed large right renal cyst with right renal stones. Mass at the upper pole of the left kidney appeared solid on the previous CT exam and measured 2.3 cm. IMPRESSION: Solid-appearing mass in the upper pole the left kidney 2.8 cm consistent with renal cell carcinoma. Large right renal cyst. Bilateral renal cortical thinning. Electronically signed by: Sameer Muñoz MD 02/09/2019 7:40 AM CDT
== END ==
LOC: US 08:00
PROVIDERS: ATTEND Family Medicine
DX: N28.89 Other specified disorders of kidney and ureter (principal); N28.1 Cyst of kidney, acquired

== ENCOUNTER → 2019-02-12 | Outpatient (CLI) | payer MEDICARE, OTHER ==
--- NOTE | 2019-02-12 12:19 | CT ---
EXAM DESCRIPTION: Abdomen/Pelvis w/Contrast: Computed Tomography. 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 TECHNIQUE: Spiral-axial scans at 2.5 x 5 mm intervals through the abdomen, including the bilateral kidneys after 75 mL Optiray 320 nonionic contrast, for arterial phase imaging. Abdomen and pelvis, 5 x 5 mm scans after nonionic IV contrast, venous phase. No oral contrast. Coronal and sagittal 2.0 mm reconstructions during venous phase. Delayed scans, liver through the pelvis. Axial-spiral 5mm. No adverse reactions. Total Exam DLP: 4875.86 mGy-cm. This exam was performed according to our departmental dose-optimization program which includes automated exposure control, adjustment of the mA and/or kV according to patient size and/or use of iterative reconstruction technique; to reduce radiation dose to as low as reasonably achievable (ALARA). FINDINGS: Kidneys and Ureters: Large cystic mass with mostly simple characteristics projecting from the mid left kidney and hilum in the anterior medial direction measuring 5.8 x 6.6 x 8.1 cm. Largest component is in the coronal plane. Focal hydronephrosis in the upper pole with a 5 mm radiodense stone. 4.5 mm radiodense stone in the inferior collecting system. Stones are stable in position compared to the prior CT scan. 2.5 mm cyst superior pole left kidney otherwise negative. Contrast in the bilateral ureters which are normal caliber. Mesentery: No stranding or fascial thickening. No ascites. Aorta: Moderate atherosclerotic calcifications including the ostia of the left renal artery with normal caliber. Minimal ectasia in the proximal right common iliac artery. Small Bowel: Normal caliber with no air-fluid levels. Terminal Ileum/Cecum: Normal caliber with fecal matter. Appendix not seen. Colon: Fecal matter in the ascending and transverse colon. Minimal redundancy of the sigmoid colon. No complications. Pelvic Organs: No radiodense stones in the urinary bladder. Small anteverted uterus. Bilaterally small ovaries. Calcifications and trace fluid in the cul-de-sac. Spine and Bony Pelvis: Advanced spondylosis L5-S1 with canal and foraminal narrowing and possible stenosis. Minimal arthrosis bilateral hips and pubic symphysis. Decreased bone density. Abdominal Wall/Back Soft Tissues: Minimal anterior protrusion of the midline raphe at the umbilicus but no hernia. Lung bases and pleura: Negative. Liver, Stomach, Spleen, Adrenal Glands, gallbladder, pancreas, and duct: Dilated common bile duct. Surgical clips gallbladder fossa with no fluid. Question of a choledochal cyst. Negative pancreas and minimal dilation of the common bile duct. Cyst in the left liver. Spleen unremarkable. Stomach and adrenal glands negative IMPRESSION: 8.1 cm cystic mass in the right kidney with no significant calcification no solid component and no inflammatory changes in the kidney or adjacent mesentery. Clinically significant at 5 mm stone in the upper pole with focal hydronephrosis possibly from mass effect of cyst. Stable since previous scan last week. Also 4.5 mm stone in the inferior pole. No ascites. Question of a choledochal cyst in the cookie hepatis with prior cholecystectomy. Possible stenosis L5-S1 lumbar spine.. Electronically signed by: Sarwat Moody MD 02/12/2019 12:18 PM CDT
== END ==
LOC: CT 08:23
PROVIDERS: ATTEND Family Medicine
DX: D41.01 Neoplasm of uncertain behavior of right kidney (principal); D41.02 Neoplasm of uncertain behavior of left kidney; N13.2 Hydronephrosis with renal and ureteral calculous obstruction

== ENCOUNTER → 2019-02-19 | Outpatient (CLI) | payer MEDICARE, OTHER ==
--- NOTE | 2019-02-19 11:08 | RAD ---
SPINAL STENOSIS CERVICAL REGION PROVIDED CLINICAL HISTORY/REASON FOR EXAM: SPINAL STENOSIS CERVICAL REGION Findings: Number of images: 5 Location: Cervical spine C1- C5 demonstrated on the lateral view. The lung apices are unremarkable. Prevertebral soft tissues are unremarkable. No acute fracture or subluxation. Vertebral body heights are maintained. Moderate multilevel degenerative disc disease. No abnormal translational motion. Degenerative changes are most pronounced at C5/C6 with marked disc space narrowing, facet/uncinate process hypertrophy, endplate degenerative change and marginal osteophytosis. IMPRESSION: Moderate multilevel cervical spondylosis. No acute fracture or subluxation. Electronically signed by: Tl Pichardo MD 02/19/2019 11:06 AM CDT
== END ==
LOC: RAD 08:16
PROVIDERS: ATTEND Neurological Surgery
DX: M48.02 Spinal stenosis, cervical region (principal); M47.892 Other spondylosis, cervical region

== ENCOUNTER → 2019-10-22 | Outpatient (CLI) | payer MEDICARE, OTHER ==
--- NOTE | 2019-10-22 16:43 | CT ---
EXAM DESCRIPTION: Abdomen w/wo Contrast: Computed Tomography. CLINICAL HISTORY: KIDNEY CANCER. No history of trauma. No recent procedure left kidney. COMPARISON: CT scan of abdomen and pelvis with IV contrast January 2019. TECHNIQUE: Spiral-axial scans at 5 x 5 mm intervals, from the diaphragms through the upper pelvis, before and after nonionic IV contrast. No oral contrast. Coronal and sagittal 2.0 mm reconstructions. 2 mm Delayed scans, liver through the upper pelvis. No adverse reactions. DLP 1707 mGy-cm. This exam was performed according to our departmental CT dose-optimization program which includes automated exposure control, adjustment of the mA and/or kV according to patient size and/or use of iterative reconstruction technique; to reduce radiation dose to as low as reasonably achievable (ALARA). FINDINGS: Kidneys and Ureters: Complex mass in the superior pole of the left kidney measuring 3.7 x 2.6 x 3.3 cm with mean density 5-6, with no enhancement or calcification. This has enlarged in the superior left perirenal space and also the superior lateral pararenal space. Minimal enhancement. Minimal fatty stranding. No stones in the left kidney. Cyst in the right kidney measures 8.7 x 5.9 x 6.9 cm with no enhancement or calcification. Stable since the prior study. I millimeter nonobstructing stone in the lower pole and 4.2 mm nonobstructing stone in the upper pole. Stable. Lung bases and pleura: Negative. Liver, stomach, adrenal glands, and spleen: Stable cyst subcapsular lateral segment left lobe and also in the cookie hepatis. Stomach distended with fluid. Spleen and adrenal glands unremarkable. Pancreas/Gallbladder/Ducts: Surgical clips in the gallbladder fossa without fluid. Physiologic caliber of the duct post cholecystectomy. Pancreas negative. Mesentery: See above for left pararenal space stranding and fluid. No free intraperitoneal air. Aorta: Minimal atherosclerotic calcification. Small Bowel: Negative included segments. Terminal Ileum/Cecum: Unremarkable. Appendix not seen. Colon: Included segments are negative. Spine: Advanced spondylosis L5-S1, and L4-5. Also spondylosis at L2-L3. Deformity of the upper sacrum with possible previous trauma and fusion. Stable. Abdominal Wall/Back Soft Tissues: Anterior abdominal wall pannus. Minimal diastases of the umbilicus but no bowel herniation. IMPRESSION: 1. The relatively well-defined mass projecting from the upper cortex of the left kidney appears more complex and has enlarged. Surrounding fluid/stranding in the superior and superior lateral left pararenal space. Minimal enhancement but remains mostly fluid density. Question of trauma. Abscess less likely. 2. Stable large right renal cysts with stable renal stones. Inferior to this cyst with no obstruction. 3. Stable bony abnormalities in the pelvis lumbar and thoracic spine. Stable hepatic cysts. CRITICAL COMMUNICATION: The critical value was communicated directly by Dr. Moody via phone call, with Dr. Jorge Dupree, at approximately 1630 hours, on October 22, 2019. Electronically signed by: Sarwat Moody MD 10/22/2019 4:42 PM CDT
== END ==
LOC: CT 13:30
PROVIDERS: ATTEND Urology
DX: Z01.812 Encounter for preprocedural laboratory examination (principal); C64.2 Malignant neoplasm of left kidney, except renal pelvis; N20.0 Calculus of kidney; N28.89 Other specified disorders of kidney and ureter; K76.89 Other specified diseases of liver; M89.9 Disorder of bone, unspecified

== ENCOUNTER → 2020-03-04 | Outpatient (CLI) | payer MEDICARE, OTHER | LOC: GMAJ 10:48 | PROVIDERS: ATTEND Family Medicine | DX: I10 Essential (primary) hypertension (principal); E78.2 Mixed hyperlipidemia ==

== ENCOUNTER → 2020-04-07 | Outpatient (CLI) | payer MEDICARE, OTHER ==
--- NOTE | 2020-04-07 10:56 | CT ---
EXAM DESCRIPTION: Abdomen w/wo Contrast CLINICAL HISTORY: CANCER OF KIDNEY COMPARISON: October 22, 2019 TECHNIQUE: CT of the abdomen only was performed without and with IV contrast. This exam was performed according to our departmental dose-optimization program, which includes automated exposure control, adjustment of the mA and/or kV according to patient size and/or use of iterative reconstruction technique. FINDINGS: Slightly lobulated 3.5 cm mass superior pole left kidney which is not definitely cystic, stable from September,. Large cyst in the right kidney measuring up to 9 cm diameter, stable. Several small nonobstructing right renal calculi. Mild left renal cortical atrophy. No left or right-sided hydroureteronephrosis. The renal veins are unremarkable. No retroperitoneal adenopathy. No lung base abnormality. Several small round low density liver lesions are incompletely characterized but likely represent cysts. No suspicious liver mass. The spleen, pancreas and adrenals are unremarkable. Visualized portions of the GI tract are unremarkable. IMPRESSION: Indeterminate 3.5 cm mass superior pole left kidney, stable from September,. Findings are consistent with provided history of renal neoplasm. No evidence of intra-abdominal metastatic disease. Small nonobstructing right renal calculi and a large uncomplicated right renal cyst, stable. Electronically signed by: Segundo Talley MD 04/07/2020 10:54 AM CDT
== END ==
LOC: CT 08:30
PROVIDERS: ATTEND Urology
DX: Z01.812 Encounter for preprocedural laboratory examination (principal); C64.2 Malignant neoplasm of left kidney, except renal pelvis; N20.0 Calculus of kidney; N28.1 Cyst of kidney, acquired